=== PATIENT | female | born 2005 | race African-American/Black ===

== ENCOUNTER 2025-04-11 15:34 | Emergency (ER) | payer OTHER, SELFPAY ==
--- OUTSIDE RECORDS SUMMARY | 2023-01-26 10:30 | XMS_ITS | Continuity of Care Document ---
Author Organization [facility] Address [address] [place] [address] [place] [phone] Phone Care Team Providers Care Child Care Director Name Role Phone Bautista Tavares PT Unavailable Unavailable Procedures Procedure Date Therapeutic Activities Neuromuscular Re-Ed Therapeutic Exercise Hot or Cold Pack Therapeutic Activities Neuromuscular Re-Ed Therapeutic Exercise Hot or Cold Pack Ultrasound Therapeutic Activities Neuromuscular Re-Ed Therapeutic Exercise Ultrasound Therapeutic Activities Neuromuscular Re-Ed Therapeutic Exercise Ultrasound Therapeutic Activities Neuromuscular Re-Ed Therapeutic Exercise Ultrasound Therapeutic Activities Neuromuscular Re-Ed Therapeutic Exercise Therapeutic Activities Neuromuscular Re-Ed Therapeutic Exercise Hot or Cold Pack Ultrasound PT Evaluation Moderate Complexity Therapeutic Activities Neuromuscular Re-Ed Therapeutic Exercise Hot or Cold Pack Advance Directives Directive Yes / No Effective Date File Name No Information Encounters Encounter Description Practice Location Reason(s) For Visit Diagnoses Date Provider Providers Copied on Encounter [facility] [address], [place], [place], [id number], tel:[phone] [facility] No Information Anusha Baum. . Referring Provider: Stephen Casiano, [address] [place] [address] [address], [place], [address]. tel:[phone] [address], [place], [place], [id number], [place] tel:[phone] [facility] No Information Anusha Baum. . Referring Provider: Stephen Casiano, [address] [place] [address] [address], [place], [address]. tel:[phone] [address], [place], [place], [id number], [place] tel:[phone] [facility] No Information Anusha Baum. . Referring Provider: Stephen Casiano, [address] [place] [address] [address], [place], [address]. tel:[phone] [address], [place], [place], [id number], [place] tel:[phone] [facility] No Information Anusha Buam. . Referring Provider: Stephen Casiano, [address] [place] [address] [address], [place], [address]. tel:[phone], [place], [place], [id number], [place] tel:[phone] [facility] No Information Anusha Baum. . Referring Provider: Stephen Casiano, [address] [place] [address] [address], [place], [address]. tel:[phone], [place], [place], [id number], [place] tel:[phone] [facility] No Information Anusha Baum. . Referring Provider: Stephen Casiano, [address] [place] [address] [address], [place], [address]. tel:[phone] [facility], [address] [place] [address] [address], [place], [place], [id number], tel:[phone] [facility] No Information Anusha Baum. . Referring Provider: Stephen Casiano, [address] [place] [address] [address], [place], [address]. tel:[phone] [facility], [address] [place] [address] [address], [place], [place], [id number], tel:[phone] [facility] No Information Anusha Baum. . Referring Provider: Stephen Casiano, [address] [place] [address] [address], [place], [address]. tel:[phone] Family History Family Member Type Diagnosis Age At Onset No Information Payers Payer name Insurance type Covered democrat ID Dior kline(s) Reid CI [id number] Social History Type Description Quantity Date Captured Comments Sex Female Smoking Status No Information Chief Complaint And Reason For Visit No Information Reason For Referral Reason For Referral No Information History Of Present Illness Encounter Date Complaint History Of Prese nt Illness No Information Functional Status Date Functional Assessmen t No Information Instructions Date Instruction Additional Infor mation No Information Assessments Type Assessment Date No Information Patient Care Teams Name Effective Dates (start - stop) Status Members No Information
--- OUTSIDE RECORDS SUMMARY | 2023-07-18 05:00 | XMS_ITS | Continuity of Care Document ---
Author Organization [facility] Address [address] [place] [address] Phone Care Team Providers Care Agency Recruiter Name Role Phone BartoloEddie Ravi Unavailable Unavailab le Allergies, Adverse Reactions, Alerts Substance Reaction Status Criticality No Known Allergies Active No Inform ation Medications Medication Instructions Dosage Effective Dates (start - stop) Status Comments rosuvastatin 10 mg tablet take 1 tablet by oral route every day 10 MG - Active Qvar RediHaler 80 mcg/actuation HFA breath activated aerosol inhale 2 puff by inhalation route 2 times every day 160 MCG - Active mometasone 0.1 % topical ointment apply by topical route every day a thin layer to the affected area(s) 0.00 - Active EpiPen 2-Shin 0.3 mg/0.3 mL injection, auto-injector inject 0.3 milliliter by intramuscular route once as needed for anaphylaxis 0.3 MG - Active Dual-pack azithromycin 250 mg tablet 1 dose pk by oral route as directed on dose pack ;take 500 mg today (day 1), then 250 mg for 4 days (days 2-5) - Active ProAir HFA 90 mcg/actuation aerosol inhaler 2 puff by Inhalation route every 6 hours ;administer with spacer prn shortness of breath or wheezing - Active Nasacort 55 mcg nasal spray aerosol 1 spray each nostril AM - Active Zyrtec 10 mg tablet 1 tablet by Oral route every day prn allergy symptoms - Active Zaditor 0.025 % (0.035 %) eye drops 1 drp by Ophthalmic route 2 times per day ;administer at least 8 hours apart prn allergy symptoms - Active Zyrtec 10 mg capsule - Active Auvi-Q 0.3 mg/0.3 mL injection, auto-injector inject 0.3 mL into thigh once as needed for anaphylaxis - No Longer Active 2 pack triamcinolone acetonide 0.05 % topical ointment Apply thin layer to affected area 1-2 times per day as needed - No Longer Active montelukast 5 mg chewable tablet 1 TABLET,CHEWABLE BY ORAL ROUTE EVERY DAY - No Longer Active Lipitor 10 mg tablet take 1 tablet by oral route every day 10 MG - No Longer Active Procedures Procedure Date HEALTH RISK ASSESSMENT, PATIENT-FOCUSED OFFICE [id number] BODY MASS INDEX DOCD SYST BP GE 130 - 139MM HG DIAST BP < 80 MM HG MOUTHPIECE ALBUTEROL 2.5 MG AND IPRATROPIUM BROMIDE .5 MG SPIROMETRY BEFORE & AFTER BRONCHODIALATO R [facility] ALLERGY INJ (MULTIPLE) ALLERGY INJ (MULTIPLE) [facility] ALLERGY INJ (MULTIPLE) [facility] ALLERGY INJ (MULTIPLE) ALLERGY INJ (MULTIPLE) ALLERGY INJ (MULTIPLE) ALLERGY INJ (MULTIPLE) ALLERGY INJ (MULTIPLE) OFFICE [id number]-UCF-MMDALDIL BODY MASS INDEX DOCD SYST BP >= 140 MM HG6 IT DIAST BP 80-89 MM HG ALLERGY INJ (MULTIPLE) HEALTH RISK ASSESSMENT, PATIENT-FOCUSED ALLERGY INJ (MULTIPLE) ALLERGY INJ (MULTIPLE) ALLERGY INJ (MULTIPLE) ALLERGY INJ (MULTIPLE) ALLERGY INJ (MULTIPLE) ALLERGY INJ (MULTIPLE) ALLERGY INJ (MULTIPLE) ALLERGY INJ (MULTIPLE) ALLERGY INJ (MULTIPLE) ALLERGY INJ (MULTIPLE) ALLERGY INJ (MULTIPLE) ALLERGY INJ (MULTIPLE) ALLERGY INJ (MULTIPLE) ALLERGY INJ (MULTIPLE) ALLERGY INJ (MULTIPLE) ALLERGY INJ (MULTIPLE) ALLERGY INJ (MULTIPLE) ALLERGY INJ (MULTIPLE) ALLERGY INJ (MULTIPLE) ALLERGY INJ (MULTIPLE) ALLERGY INJ (MULTIPLE) ALLERGY INJ (MULTIPLE) ALLERGY INJ (MULTIPLE) ALLERGY INJ (MULTIPLE) ALLERGY INJ (MULTIPLE) RAPID DESENSITIZATION, EACH HOUR 2020 OFFICE [id number] BODY MASS INDEX DOCD ALLERGY INJ (MULTIPLE) RAPID DESENSITIZATION, EACH HOUR 2020 OFFICE [id number]-IEC-AHUXCUNV BODY MASS INDEX DOCD ALLERGY INJ (MULTIPLE) OFFICE [id number] BODY MASS INDEX DOCD RAPID DESENSITIZATION, EACH HOUR 2020 OFFICE JPUXW-HOO-VGAVOREV BODY MASS INDEX DOCD RAPID DESENSITIZATION, EACH HOUR 2020 RAPID DESENSITIZATION, EACH HOUR 2020 OFFICE UAOKM-[id number]-XSWSCIXO OFFICE PIHWP-ZQT-[id number] RAPID DESENSITIZATION, EACH HOUR 2020 OFFICE QQHUI-FHH-[id number] BODY MASS INDEX DOCD RAPID DESENSITIZATION, EACH HOUR 2020 OFFICE [id number]-PJK-[id number] BODY MASS INDEX DOCD RAPID DESENSITIZATION, EACH HOUR 2020 [facility] ALLERGY SKIN TESTS OFFICE [id number] BODY MASS INDEX DOCD OFFICE [id number] Advance Directives Directive Yes / No Effective Date File Name No Information Encounters Encounter Description Practice Location Reason(s) For Visit Diagnoses Date Provider Providers Copied on Encounter OFFICE [id number]ULP[facility]PW [facility], [address], [place], [place], [address] , tel: [phone] [facility] Follow Up of Allergy symptoms (chief complaint) Follow Up of Asthma (chief complaint) Follow Up of Eczema (chief complaint) Follow Up of Reaction, food (chief complaint) Food allergyAllergic rhinitis due to pollen, unspecified seasonalityAllergic rhinitis due to animal hair and danderAllergic rhinitis due to dust miteMild persistent asthma without complicationFlexura l eczema 3 Kaitlynn Morgan. [address] [place] [address], [address], [place]. tel:[phone] Referring Provider: Eddie Calderón, [address] [place] [address], [address]. tel:[phone] [facility], [address], [place], [place], [address] , [place] tel:[phone] [facility] No Information 3 Isaias Henley. [address] [place] [address], [id number], [place]. tel:[phone] [facility], [address], [place], [address] , tel: [phone] [facility] No Information 2 Isaias Rabya. [address] [place] [address], [id number], [place]. tel:[phone] Referring Provider: Lenora Snyder, [address], [place], [address]. tel:[phone] [facility], [address], [place], [place], [address] , [place] tel: [phone] [facility] No Information 2 Isaias Rabya. [address] [place] [address], [id number], [place]. tel:[phone] Referring Provider: Lenora Snyder, [address], [place], [address]. tel:[phone] [facility], [address], [place], [place], [address] , [place] tel: [phone] [facility] Allergic rhinitis due to pollen 2 Isaias Rabya. [address] [place] [address], [id number], [place]. tel:[phone] Referring Provider: Lenora Snyder, [address], [place], [address]. tel:[phone] [facility], [address], [place], [place], [address] , [place] tel: [phone] [facility] Allergic rhinitis due to pollen 2 Isaias Rabya. [address] [place] [address], [id number], [place]. tel:[phone] Referring Provider: Lenora Snyder [address], [place], [address]. tel:[phone] [facility], [address], [address] , [place] tel: [phone] [facility] No Information 2 Isaiasissac Henley. [address] [place], [address], [place]. tel:[phone] Referring Provider: Lenora Snyder, [address], [place], [address]. tel:[phone] [facility], [address], [place], [place], [address] , [place] tel: [phone] [facility] Allergic rhinitis due to pollen 2 Isaias Rabya. [address] [place] [place], [place], [address], [place]. tel:[phone] Referring Provider: Lenora Snyder, [address], [place], [address]. tel:[phone] [facility], [address], [place], [place], [address] , [place] tel: [phone] [facility] No Information 2 Isaias Rabrubén. [address] [place] [place], [place], [id number], [place]. tel:[phone] Referring Provider: Lenora Snyder, [address], [place], [address]. tel:[phone] [facility], [address], [place], [place], [address] , [place] tel: [phone] [facility] No Information 2 Isaias Rabrubén. [address] [place], [place], [address], [place]. tel:[phone] Referring Provider: Lenora Snyder, [address], [place], [address]. tel:[phone] [facility], [address], [place], [place], [address] , [place] tel: [phone] [facility] Allergic rhinitis due to pollen 2 Isaias Rabya. [address] [place], [place], [address], [place]. tel:[phone] Referring Provider: Lenora Snyder [address], [place], [address]. tel:[phone] [facility], [address], [place], [place], [address] , [place] tel: [phone] [facility] Allergic rhinitis due to pollen 2 Isaias Rabya. [address] [place], [place], [address], [place]. tel:[phone] Referring Provider: Lenora Snyder [address], [place], [address]. tel:[phone] [facility], [address], [place], [place], [address] , [place] tel: [phone] [facility] Allergic rhinitis due to pollen 2 Isaias Rabya. [address] [place], [place], [address], [place]. tel:[phone] Referring Provider: Lenora Snyder [address] [facility], [place], [address]. tel:[phone] [facility], [address], [place], [place], [address] , [place] tel: [phone] [facility] Allergic rhinitis due to pollen 2 Isaias Rabya. [address] [place], [place], [address], [place]. tel:[phone] Referring Provider: Lenora Snyder [address], [place], [address]. tel:[phone] [facility], [address], [place], [place], [address] , [place] tel: [phone] [facility] Allergic rhinitis due to pollen 2 Isaias Rabrubén. [address] [place], [place], [address], [place]. tel:[phone] Referring Provider: Lenora Snyder, [address], [place], [address]. tel:[phone] OFFICE [id number]-WH [facility], [address], [place], [place], [address] , [place] tel: [phone] [facility] allergy f/u (chief complaint) asthma f/u (chief complaint) eczema f/u (chief complaint) food allergy f/u (chief complaint) Allergic rhinitis due to pollenAllergic rhinitis due to animal danderAllergic rhinitis due to Rwandan house dust miteExercise induced bronchospasmMild intermittent asthma without complicationAtopic dermatitisFood allergy 2 Cathy Garcia. [address] [place] [place], [place], [address], [place]. tel:[phone] Referring Provider: Lenora Snyder, [address] [facility] [address], [place], [address]. tel:[phone] [facility], [address], [place], [place], [address] , [place] tel:[phone] [facility] Allergic rhinitis due to pollen 2 Isaias Rabya. [address] [place] [place], [place], [address], [place]. tel:[phone] Referring Provider: Lenora Snyder [address], [place], [address]. tel:[phone] [facility], [address], [place], [place], [address] , [place] tel:[phone] [facility] Allergic rhinitis due to pollen 2 Isaias Rabya. [address] [place], [place], [address], [place]. tel:[phone] Referring Provider: Lenora Snyder [address], [place], [address]. tel:[phone] [facility], [address], [place], [place], [address] , tel: [phone] [facility] Allergic rhinitis due to pollen 1 Isaias Rabya. [address] [place] [address], [id number], [place]. tel:[phone] Referring Provider: Lenora Snyder [address], [place], [address]. tel:[phone] [facility], [address], [place], [place], [address] , [place] tel: [phone] [facility] Allergic rhinitis due to pollen 1 Isaias Rabya. [address] [place] [address], [id number], [place]. tel:[phone] Referring Provider: Lenora Snyder [address], [place], [address]. tel:[phone] [facility], [address], [place], [place], [address] , [place] tel: [phone] [facility] Allergic rhinitis due to pollen 1 Isaias Rabya. [address] [place] [address], [id number], [place]. tel:[phone] Referring Provider: Lenora Snyder [address], [place], [address]. tel:[phone] [facility], [address], [place], [place], [address] , tel: [phone] [facility] Allergic rhinitis due to pollen 1 Isaias Rabya. [address] [place], [place], [address], [place]. tel:[phone] Referring Provider: Lenora Snyder [address], [place], [address]. tel:[phone] [facility], [address], [place], [place], [address] , [place] tel: [phone] [facility] Allergic rhinitis due to pollen 7 1 Isaias Rabya. [address] [place], [place], [address], [place]. tel:[phone] Referring Provider: Lenora Snyder [address], [place], [address]. tel:[phone] [facility], [address], [place], [place], [address] , [place] tel: [phone] [facility] Allergic rhinitis due to pollen - 1 Isaias Rabya. [address] [place] [address], [id number], [place]. tel:[phone] Referring Provider: Lenora Snyder [address], [place], [address]. tel:[phone] [facility], [address], [place], [place], [address] , [place] tel: [phone] [facility] Allergic rhinitis due to pollen 1 Isaias Rabya. [address] [place] [address], [id number], [place]. tel:[phone] Referring Provider: Lenora Snyder [address], [place], [address]. tel:[phone] [facility], [address], [place], [place], [address] , [place] tel: [phone] [facility] Allergic rhinitis due to pollen 0 6- 1 Isaias Rabya. [address] [place], [place], [address], [place]. tel:[phone] Referring Provider: Lenora Lillian, [address], [place], [address]. tel:[phone] [facility], [address], [place], [place], [address] , [place] tel: [phone] [facility] Allergic rhinitis due to pollen Sep-2 - 1 Isaias Rabya. [address] [place], [place], [address], [place]. tel:[phone] Referring Provider: Lenora Snyder, [address], [place], [address]. tel:[phone] [facility], [address], [place], [place], [address] , [place] tel: [phone] [facility] Allergic rhinitis due to pollen Sep-2 1 Isaias Rabya. [address] [place] [address], [id number], [place]. tel:[phone] Referring Provider: Lenora Snyder [address], [place], [address]. tel:[phone] [facility], [address], [place], [place], [address] , [place] tel: [phone] [facility] Allergic rhinitis due to pollen Sep-1 1 Isaias Rabya. [address] [place] [address], [id number], [place]. tel:[phone] Referring Provider: Lenora Snyder [address], [place], [address]. tel:[phone] [facility], [address], [place], [place], [address] , [place] tel: [phone] [facility] Allergic rhinitis due to pollen Sep-0 - 1 Isaias Rabya. [address] [place], [place], [address], [place]. tel:[phone] Referring Provider: Lenora Snyder [address], [place], [address]. tel:[phone] [facility], [address], [place], [place], [address] , [place] tel: [phone] [facility] Allergic rhinitis due to pollen 1 Isaias Rabya. [address] [place] [address], [id number], [place]. tel:[phone] Referring Provider: Lenora Snyder [address], [place], [address]. tel:[phone] [facility], [address], [place], [place], [address] , [place] tel: [phone] [facility] Allergic rhinitis due to pollen 1 Isaias Rabya. [address] [place] [address], [id number], [place]. tel:[phone] Referring Provider: Lenora Snyder [address], [place], [address]. tel:[phone] [facility], [address], [place], [place], [address] , [place] tel: [phone] [facility] Allergic rhinitis due to pollen 1 Isaias Rabya. [address] [place] [address], [id number], [place]. tel:[phone] Referring Provider: Maria Elena R[address], [place], [address]. tel:[phone] [facility], [address], [place], [place], [address] , [place] tel: [phone] [facility] Allergic rhinitis due to pollen 1 Isaias Rabya. [address] [place] [address], [id number], [place]. tel:[phone] Referring Provider: Maria Elena Rucker [address], [place], [address]. tel:[phone] [employer], [address], [place], [place], [address] , [place] tel: [phone] [facility] Allergic rhinitis due to pollen 1 Isaias Rabya. [address] [place] [address], [id number], [place]. tel:[phone] Referring Provider: Lenora Snyder [address], [place], [address]. tel:[phone] [employer], [address], [place], [place], [address] , [place] tel: [phone] [facility] Allergic rhinitis due to pollen 1 Isaias Rabya. [address] [place] [address], [id number], [place]. tel:[phone] Referring Provider: Maria Elena Rucker [address], [place], [address]. tel:[phone] [facility], [address], [place], [place], [address] , [place] tel: [phone] [facility] Allergic rhinitis due to pollen 1 Isaias Rabya. [address] [place] [address], [id number], [place]. tel:[phone] Referring Provider: Maria Elena Rucker [address], [place], [address]. tel:[phone] [facility], [address], [place], [place], [address] , [place] tel: [phone] [facility] Allergic rhinitis due to pollen 1 Isaias Rabya. [address] [place] [address], [id number], [place]. tel:[phone] Referring Provider: Maria Elena Rucker [address], [place], [address]. tel:[phone] [facility], [address], [place], [place], [address] , [place] tel: [phone] [facility] Allergic rhinitis due to pollen Jan- 1 Isaias Rabya. [address] [place], [place], [address], [place]. tel:[phone] Referring Provider: Lenora Snyder, [address] [facility] [address], [place], [address]. tel:[phone] [facility], [address], [place], [place], [address] , [place] tel: [phone] [facility] Allergic rhinitis due to pollen 1 Isaias Rabya. [address] [place] [address], [id number], [place]. tel:[phone] Referring Provider: Lenora Snyder, [address] [facility] [address], [place], [address]. tel:[phone] [facility], [address], [place], [place], [address] , [place] tel: [phone] [facility] Allergic rhinitis due to pollen 1 Isaias Rabya. [address] [place] [address], [id number], [place]. tel:[phone] Referring Provider: Lenora Snyder [address] [facility] [address], [place], [address]. tel:[phone] OFFICE [id number]-ZAD-XS PANDED [facility], [address], [place], [place], [address] , [place] tel: [phone] [facility] Allergy f/u (chief complaint) Follow Up of Asthma (chief complaint) Follow Up of Eczema (chief complaint) Allergic rhinitis due to pollenAllergic rhinitis due to Rwandan house dust miteAllergic rhinitis due to animal danderMild intermittent asthma without complicationFlexura l eczemaDesensitizati on to allergensAcute otitis media, unspecified otitis media type Mynor-1 9-202 1 [facility]. [address] [place] [address], [address], [place]. tel:[phone] Referring Provider: Siomara Rucker[address] [facility] [address], [place], [address]. tel:[phone] [facility], [address], [place], [place], [address] , [place] tel:[phone] [facility] Allergic rhinitis due to pollen 1 Isaias Rabya. [address] [place] [address], [id number], [place]. tel:[phone] Referring Provider: Lenora Snyder, [address] [facility] [address], [place], [address]. tel:[phone] OFFICE [id number] PANDED [facility], [address], [place], [place], [address] , [place] tel: [phone] [facility] Allergy f/u (chief complaint) Follow Up of Asthma (chief complaint) Follow Up of Eczema (chief complaint) Allergic rhinitis due to pollenAllergic rhinitis due to animal danderAllergic rhinitis due to Rwandan house dust miteMild intermittent asthma without complicationFlexura l eczemaDesensitizati on to allergens 1 [facility]. [address] [place] [address], [address], [place]. tel:[phone] Referring Provider: Lenora Snyder [address] [facility] [address], [place], [address]. tel:[phone] [facility], [address], [place], [place], [address] , [place] tel:[phone] [facility] Allergic rhinitis due to pollen 1 Isaias Rabya. [address] [place] [address], [id number], [place]. tel:[phone] Referring Provider: Lenora Snyder [address] [facility] [address], [place], [address]. tel:[phone] OFFICE PJNVN-GWF-AU [facility], [address], [place], [place], [address] , tel:[phone] [facility] allergy f/u (chief complaint) asthma (chief complaint) Eczema (chief complaint) Allergic rhinitis due to pollenAllergic rhinitis due to animal danderAllergic rhinitis due to Rwandan house dust miteDesensitization to allergensMild intermittent asthma without complicationFlexura l eczema 1 [facility]. [address] [place] [address], [id number], [place]. tel:[phone] Referring Provider: Lenora Snyder, [address] [place] [address] [address], [place], [address]. tel:[phone] OFFICE JCFVH[facility]WLY-QG [facility], [address], [place], [place], [address] , [place] tel: [phone] [facility] allergy f/u (chief complaint) asthma (chief complaint) Eczema (chief complaint) Allergic rhinitis due to pollenAllergic rhinitis due to animal danderAllergic rhinitis due to Rwandan house dust miteDesensitization to allergensMild intermittent asthma without complicationFlexura l eczemaOther chronic allergic conjunctivitis of both eyes 1 [facility]. [address] [place] [address], [id number], [place]. tel:[phone] Referring Provider: Lenora Snyder, [address] [facility] [address], [place], [address]. tel:[phone] OFFICE [id number]-ALX-XK [facility], [address], [place], [place], [address] , [place] tel:[phone] [facility] Allergy f/u (chief complaint) Follow Up of Asthma (chief complaint) Follow Up of Reaction, food (chief complaint) Follow Up of Eczema (chief complaint) Allergic rhinitis due to pollenAllergic rhinitis due to animal danderAllergic rhinitis due to [place]an house dust miteMild intermittent asthma without complicationExercis e induced bronchospasmFood allergyFlexural eczemaDesensitizati on to allergens 1 Kaitlynn Morgan. [address] [place], [address], [place]. tel:[phone] Referring Provider: Lenora Snyder, [address] [facility] [address], [place], [address]. tel:[phone] OFFICE JXTRX-QJD-KI [facility], [address], [place], [place], [address] , [place] tel:[phone] [facility] allergy f/u (chief complaint) asthma (chief complaint) Reaction, food (chief complaint) h/o hives after vaccine (chief complaint) eczema (chief complaint) Allergic rhinitis due to pollenAllergic rhinitis due to animal danderAllergic rhinitis due to Rwandan house dust miteDesensitization to allergensMild intermittent asthma without complicationExercis e induced bronchospasmFood allergyAdverse effect of vaccine, subsequent encounter 1 Cathy Garcia. [address] [place] [address], [id number], [place]. tel:[phone] Referring Provider: Lenora Snyder, [address] [facility] [address], [place], [address]. tel:[phone] OFFICE ACKJP-JDA-AR [facility], [address], [place], [place], [address] , [place] tel:[phone] [facility] allergy f/u (chief complaint) asthma (chief complaint) food allergy (chief complaint) eczema (chief complaint) Allergic rhinitis due to pollenAllergic rhinitis due to animal danderAllergic rhinitis due to Rwandan house dust miteDesensitization to allergensMild intermittent asthma without complicationFood allergyOther chronic allergic conjunctivitis of both eyes 1 Cathy Garcia. [address] [place] [address], [id number], [place]. tel:[phone] Referring Provider: Lenora Snyder, [address] [facility] [address] [place] [address], [address]. tel:[phone] OFFICE BRPOM-CSS-WF [facility], [address], [place], [place], [address] , tel: [phone] [facility] allergy f/u (chief complaint) asthma (chief complaint) Tree nut allergy (chief complaint) eczema (chief complaint) Vaccine Reaction (chief complaint) Allergic rhinitis due to pollenAllergic rhinitis due to animal danderAllergic rhinitis due to Rwandan house dust miteDesensitization to allergensFood allergyMild intermittent asthma without complicationAllergi c conjunctivitis, bilateralAdverse effect of vaccine, initial encounterExercise induced bronchospasm 1 Cathy Garcia. [address] [place] [address], [id number], [place]. tel:[phone] Referring Provider: Lenora Snyder [address] [place] [address], [address]. tel:[phone] [employer], [address], [place], [place], [id number] , [place] tel: [phone] [facility] No Information 1 Isaias Henley. [address] [place] [address], [id number], [place]. tel:[phone] Referring Provider: Lenora Snyder [address], [address]. tel:[phone] [facility], [address], [place], [place], [address] , [place] tel: [phone] [facility] No Information 1 Isaias Henley. [address] [place] [address], [id number], [place]. tel:[phone] Referring Provider: Lenora Snyder [address] [facility] [address], [place], [address]. tel:[phone] [facility], [address], [place], [id number] , [place] tel: [phone] [facility] No Information 1 Isaias Henley. [address] [place], [place], [id number], [place]. tel:[phone] Referring Provider: Lenora Snyder, [address] [facility] [address], [place], [address]. tel:[phone] [facility], [address], [place], [place], [id number] , [place] tel: [phone] [facility] No Information 1 Isaias Henley. [address] [place], [place], [id number], [place]. tel:[phone] Referring Provider: Lenora Snyder, [address] [facility] [address], [place], [address]. tel:[phone] [facility], [address], [place], [place], [id number] , [place] tel: [phone] [facility] No Information 1 Isaias Henley. [address] [place], [place], [id number], [place]. tel:[phone] Referring Provider: Lenora Snyder, [address] [facility] [address], [place], [address]. tel:[phone] OFFICE [id number]-ET [facility], [address], [place], [place], [id number] , [place] tel: [phone] [facility] Allergy testing (chief complaint) Follow Up of Asthma (chief complaint) Follow Up of Reaction, food (chief complaint) Follow Up of Eczema (chief complaint) Food allergyAllergic rhinitis due to pollen, unspecified seasonalityAcute allergic rhinitis due to animal hair and danderAllergic rhinitis due to Rwandan house dust miteMild intermittent asthma without complicationExercis e induced bronchospasmFlexura l eczema 1 Kaitlynn Morgan. [address] [place] [address], [address], [place]. tel:[phone] Referring Provider: Lenora Snyder, [address] [facility] [address], [place], [address]. tel:[phone] OFFICE [id number]-HFU-PS [facility], [address], [place], [place], [id number] , [place] tel: [phone] [facility] Follow Up of Allergy symptoms (chief complaint) Follow Up of Eczema (chief complaint) Follow Up of Hives (chief complaint) Follow Up of Asthma (chief complaint) Follow Up of Reaction, food (chief complaint) Allergic rhinitis, seasonalMild intermittent asthma without complicationExercis e induced bronchospasmFlexura l eczemaHivesFood allergyAllergic conjunctivitis, bilateral Sep- 0- 1 Philky Conklinncaleyda. [address] [place], [address], [place]. tel:[phone] Referring Provider: Lenora Snyder, [address] [facility] [address], [place], [address]. tel:[phone] [facility], [address], [place], [place], [id number] , [place] tel: [phone] [facility] No Information 0 8 Alex Valladares. [address] [place], [place], [id number]. tel:[phone] [facility], [address], [place], [place], [address] , [place] tel: [phone] [facility] Allergic rhinitis due to pollenAllergic conjunctivitis, bilateralMild intermittent asthma without complicationExercis e induced bronchospasmFood allergyFlexural eczemaPenicillin allergy 8 Alex Valladares. [address] [place], [place], [id number]. tel:[phone] Referring Provider: Lenora Sndyer, [address] [facility] [address], [place], [address]. tel:[phone] [facility], [address], [place], [place], [address] , [place] tel: [phone] [facility] Allergy with anaphylaxis due to tree nuts or seeds, initial encounterAllergy with anaphylaxis due to peanuts, initial encounterAllergic rhinitis, seasonalOther chronic allergic conjunctivitisExtri nsic asthma without status asthmaticus, mild intermittent, uncomplicatedFlexur al eczemaPenicillin allergy Sep- 6 Isaias Henley. [address] [place], [place], [id number], [place]. tel:[phone] Referring Provider: Kale Esparza, [address] [place], [address] . tel:[phone] Family History Family Member Type Diagnosis Age At Onset Father Problem (finding) Allergies, environmenta l Father Problem (finding) asthma Payers Payer name Insurance type Covered democrat ID Authoriza tion(s) [employer] PPO SELF FUNDED PLANS CI [id number] Social History Type Description Quantity Date Captured Comments Alcohol Use Details Unknown Caffeine Use Details Unknown Tobacco Use Status Never smoked tobacco 2022 Smoking Status Never smoker Sex Female Vital Signs Date / Time: Height Weight BMI Pulse Rate Blood Pressure Temperature Respiratory Rate Body Surface Area Head Circumference Head Circ. Percentile Wt./Ck. Percentile BMI percentile Pulse Ox Inhaled Ox 10:18 AM 67.72 in 71.849 kg (158.40 lbs) 24.2 9 kg/m eter (2) 63 /min 131/73 mm[Hg] 98.40 F 74 97 % Chief Complaint And Reason For Visit From encounter dated '07/18/2023 10:00'. Follow Up of Allergy symptoms (chief complaint) Follow Up of Asthma (chief complaint) Follow Up of Eczema (chief complaint) Follow Up of Reaction, food (chief complaint) Reason For Referral Reason For Referral No Information Plan Of Treatment Date Type Action Status Future Order: Lab Order Stamping Ground N ut (f18) IgE W/Reflex Component ([id number]), Sent on: Sent Future Order: Lab Order Immunogl obulin E, Total ([id number]), Sent on: Sent Future Order: Lab Order Cashew N ut F202 ([id number]), Sent on: Sent Future Order: Lab Order Pecan Nu t F201 ([id number]), Sent on: Sent Future Order: Lab Order Sharon ( f256) IgE W/Reflex Component Panel ([id number]), Sent on: Sent Future Order: Lab Order Cashew N ut (f202) IgE W/Reflex Component ([id number]), Sent on: Sent Future Order: Lab Order Hazelnut (f17) IgE W/Reflex Component Panel ([id number]), Sent on: Sent Future Order: Lab Order Pistachi o Nut Ige F203 ([id number]), Sent on: Sent Future Order: Lab Order Peanut F 013 ([id number]), Sent on: Sent Future Order: Lab Order Macadami a Nut F345 ([id number]), Sent on: Sent Future Order: Lab Order Forsyth F 020 ([id number]), Sent on: Sent Future Order: Lab Order Peanut, Total with Reflex to Peanut Component Pane ([id number]), Sent on: Sent Future Order: Lab Order Forsyth F 020 ([id number]), Ordered on: Ordered Future Order: Lab Order Cashew N ut F202 ([id number]), Ordered on: Ordered Future Order: Lab Order Sharon F 256 ([id number]), Ordered on: Ordered Future Order: Lab Order Peanut, Total with Reflex to Peanut Component Pane ([id number]), Ordered on: Ordered Future Order: Lab Order Hazelnut /Filbert F017 ([id number]), Ordered on: Ordered Future Order: Lab Order Peanut F 013 ([id number]), Ordered on: Ordered Future Order: Lab Order Macadami a Nut F345 ([id number]), Ordered on: Ordered Future Order: Lab Order Pistachi o Nut Ige F203 ([id number]), Ordered on: Ordered Future Order: Lab Order Peanut, Total with Reflex to Peanut Component Pane ([id number]), Ordered on: Ordered Future Order: Lab Order Sharon F 256 ([id number]), Ordered on: Ordered Future Order: Lab Order Pistachi o Nut Ige F203 ([id number]), Ordered on: Ordered Future Order: Lab Order Hazelnut /Filbert F017 ([id number]), Ordered on: Ordered Future Order: Lab Order Cashew N ut F202 ([id number]), Ordered on: Ordered Future Order: Lab Order Macadami a Nut F345 ([id number]), Ordered on: Ordered Future Order: Lab Order Forsyth F 020 ([id number]), Ordered on: Ordered Future Order: Lab Order Peanut F 013 ([id number]), Ordered on: Ordered Future Order: Lab Order F020 Sravanthi ond ([id number]), Sent on: Sent Future Order: Lab Order F202 Chema hew Nut ([id number]), Sent on: Sent Future Order: Lab Order F013 Pea nut ([id number]), Sent on: Sent Future Order: Lab Order Peanut C omponent Panel ([id number]), Sent on: Sent Future Order: Lab Order F256 Wal nut, Food ([id number]), Sent on: Sent History Of Present Illness Encounter Date Complaint History Of Prese nt Illness Follow Up of Allergy symptoms Follow Up of Asthma Follow Up of Eczema Follow Up of Reaction, food Comments: This i s a 17 y/o female who presents to the clinic for follow-up of allergic rhinitis, asthma, eczema, and history of peanut/tree nut allergy. Patient was last seen in the office 08/19/2021 with AD. Patient is allergic to trees, grasses, weeds, molds, and animal dander, including cat, dog, dust mite, cockroach, feather mix, guinea pig, and sweet gum. Patient received allergen immunotherapy from October 2020-October 2021. Patient complains of increased nasal drainage. She denies any itchy eyes, congestion, or sneezing. She has been taking Ofelia, Pepcid, and Singulair daily. She uses Flonase Sensimist daily as needed for worsening symptoms. Comments: Huongjuliette cat states that she has been having increased amounts of shortness of breath, coughing, and chest tightness. She states that it is slightly worse at night. She uses albuterol before soccer games/practices, but she has had to use albuterol at least once per week for nighttime symptoms. She takes Singulair 10 mg PO daily. Patient has not had any recent exacerbations. Comments: Saulo shelton states that she has been having increased flares of eczema on her neck and left inner thigh. She states that she has been using CeraVe for moisturization. She feels that the triamcinolone ointment is not helping with symptoms and would like something stronger. She denies any cracking or bleeding. She states that she typically will have breakouts on her inner elbows and under her knees but those are not bothering her currently. Comments: Saulo shelton continues to avoid peanuts (vomiting, rash) and tree nuts (flushing, vomiting, and hives); these required epinephrine in 2016. She states that about 1-2 weeks ago she had a [place] granola bar and did not get to read the label carefully; she developed throat itching after having one bite (contained almond). She took 2 Benadryl and symptoms resolved within 20-30 minutes. She has since been actively avoiding. Last immunoCAPS drawn 11/05/2020 showed peanut 8.81 KU/L, Cashew 1.59 KU/L, Forsyth 0.79 KU/L, Hazelnut 12.7 KU/L, Macadamia Nut 0.17 KU/L, Pistachio 2.20 KU/L and Sharon <0.10 KU/L. allergy f/u asthma f/u allergy f/u (comments) Rosita brown bernardo traditional allergy immunotherapy for allergies to trees, grasses, weeds, molds, and animal dander, including cat, dog, dust mites, cockroach, feather mix, guinea pig, and sweet gum. Reports mild nasal congestion (states she has had then since recovering from COVID at the first week of August); otherwise denies rhinorrhea, sneezing or PND. She is taking Ofelia, Pepcid, Singulair and using Sensimist PRN. food allergy f/u (comments) She continues avoiding peanuts and tree nuts. Denies any accidental exposures. Last ImmunoCAPS 11/05/2020: peanut 8.81 KU/L, Cashew 1.59 KU/L, Forsyth 0.79 KU/L, Hazelnut 12.7 KU/L, Macadamia Nut 0.17 KU/L, Pistachio 2.20 KU/L and Sharon <0.10 KU/L. She has a current Auvi Q and up to date food allergy action plan. She is not interested in oral food challenge at this time. eczema f/u food allergy f/u asthma f/u (comments) Reports in termittent shortness of breath, specifically with soccer. She has not been pre-treating with albuterol. Denies cough or wheezing. eczema f/u (comments) She had a recent flare up of eczema on her hands and inner thighs. Symptoms resolved with triamcinolone. She is moisturizing with Cerave. Allergy f/u (comments) This is a 15 y/o female who presents to the clinic for follow-up and to continue cluster (2 rounds) allergen immunotherapy. Patient is allergic to trees, grasses, weeds, molds, and animal dander, including cat, dog, dust mite, cockroach, feather mix, guinea pig, and sweet gum. Patient tolerated injections last week with no reaction. Patient continues to complain of ear pressure, yellow drainage, coughing, and PND. Patient denies any itchy eyes and congestion. She is currently taking Ofelia, Pepcid, Singulair, and Flonase Sensimist daily. Follow Up of Eczema (comments) Ernestina castillo denies any recent flares or breakouts. Patient continues to use CeraVe cream to moisturize with triamcinolone cream as needed. Patient states that she takes a shower immediately after playing soccer which helps with eczema control. Follow Up of Eczema Allergy f/u Follow Up of Asthma Follow Up of Asthma (comments) Ernestina castillo denies any chest tightness, wheezing, or SOB. Patient continues to take Singulair daily at bedtime. She has not had to use albuterol recently. Patient denies any recent exacerbations. Follow Up of Asthma (comments) Ernestina castillo has been well-controlled with her asthma. Patient has been taking Singulair nightly. Patient has not had to use her albuterol recently. She denies any coughing, wheezing, chest tightness, or SOB. Patient denies any recent exacerbations. Follow Up of Eczema (comments) Ernestnia castillo does have [id number]-sw-hsrawkhs eczema on her bilateral hands and arms. Patient has been using CeraVe cream regularly. This happened after playing all week last week for soccer. Patient has been using triamcinolone cream which is only slightly improving symptoms. Follow Up of Eczema Allergy f/u Allergy f/u (comments) This is a 15 y/o female who presents to the clinic for follow-up and to continue cluster (3 rounds) allergen immunotherapy. Patient is allergic to trees, grasses, weeds, molds, and animal dander, including cat, dog, dust mite, cockroach, feather mix, guinea pig, and sweet gum. Patient tolerated injections last week with no reaction. Patient continues on 1:10 concentration. Patient does complain of sinus drainage and ear pressure for the past 3-4 days. She denies any fever. She states that she has a very mild, intermittent headache as well. she has a yellowish productive cough with nausea. She has been taking her Ofelia, Pepcid, Singulair, and Flonase Sensimist daily. Follow Up of Asthma asthma allergy f/u (comments) Rosita reed sents today for allergic rhinitis follow up and to continue cluster allergy immunotherapy. She is allergic to trees, grasses, weeds, molds, and animal dander, including cat, dog, dust mites, cockroach, feather mix, guinea pig, and sweet gum. Denies local reaction after her injections last week. She reports she has been feeling well this past week; denies congestion, drainage, sneezing, or itchy eyes. She is taking Ofelia, Pepcid, Singulair and Flonase Sensimist daily and uses Zaditor eye drops as needed for itchy eyes. allergy f/u asthma (comments) Denies cough, wheezing, sneezing, or SOB. Currently on Singulair 10 mg PO daily at bedtime. No recent albuterol use. Eczema (comments) Denies any cur rent eczema symptoms. She has been moisturizing her skin daily with Cerave. Eczema Eczema Eczema (comments) She reports th at the eczema on her hands has started to improve with routine moisturizing with CeraVe. asthma (comments) Denies cough, wheezing, sneezing, or SOB. She is taking Singulair 10 mg PO daily at bedtime. She has not required albuterol in the past week. asthma allergy f/u allergy f/u (comments) Rosita reed sents today for allergic rhinitis follow up and to continue cluster allergy immunotherapy. She is allergic to trees, grasses, weeds, molds, and animal dander, including cat, dog, dust mites, cockroach, feather mix, guinea pig, and sweet gum. Denies local reaction after her injections last week. She complains of congestion and drainage. She is taking Ofelia, Pepcid, Singulair and Flonase Sensimist daily and uses Zaditor eye drops as needed for itchy eyes. Follow Up of Eczema Follow Up of Reaction, food Allergy f/u (comments) This is a 15 y/o female who presents to the clinic for follow-up and to continue cluster (3 rounds) allergen immunotherapy. Patient is allergic to trees, grasses, weeds, molds, and animal dander, including cat, dog, dust mite, cockroach, feather mix, guinea pig, and sweet gum. Patient tolerated injections last week with no local or systemic reaction. Patient continues to complain of congestion, drainage, PND, and itchy/watery eyes. She is taking Ofelia, Pepcid, Singulair, Flonase Sensimist ,and Zaditor eye drops daily. Follow Up of Asthma (comments) Ernestina castillo has been well-controlled with her asthma. She has not had to use her albuterol this week. She continues taking Singulair daily at bedtime. Patient denies any coughing, wheezing, chest tightness, or SOB. Patient has not had any recent exacerbations. Follow Up of Reactio n, food (comments) Patient continues avoiding tree nuts and peanuts, Patient denies any recent or accidental exposures. Follow Up of Eczema (comments) Ernestina castillo has not had any recent flares or breakouts. She is continuing to moisturize with CeraVe. She has not had to use triamcinolone recently. Follow Up of Asthma Allergy f/u allergy f/u (comments) Rosita pre sents today for allergic rhinitis follow up and to continue cluster allergy immunotherapy. She is allergic to trees, grasses, weeds, molds, and animal dander, including cat, dog, dust mites, cockroach, feather mix, guinea pig, and sweet gum. She has a mild local reaction last week after her injections. She complains of congestion and post nasal drainage. She is taking Ofelia, Pepcid, Singulair and Flonase Sensimist daily and uses Zaditor eye drops as needed. asthma (comments) Patient denies any current coughing, wheezing, sneezing, or SOB. She is taking Singulair 10 mg PO daily at bedtime. She used albuterol once this past week. Reaction, food (comments) Unchan ged from last visit. She continues avoiding peanuts and tree nuts. Denies any accidental exposures. h/o hives after vacc ine (comments) She has a history of developing hives 2 hours after her first Pfizer COVID vaccine. Recommendation was to receive the 2nd dose of Pfizer, but to premedicate with Benadryl and Pepcid. She received her second dose this past week and was closely monitored for 1.5 hours at the vaccine clinic. She did not have any adverse reaction. eczema (comments) She has occasi onal flare ups on the back of her hands. She is moisturizing with Cerave and has been prescribed Triamcinolone. allergy f/u Reaction, food h/o hives after vaccine eczema asthma eczema (comments) Continues to e xperience itchy, red patches on her hands. She has not yet started the triamcinolone that was prescribed at her visit last week. allergy f/u (comments) Rosita pre sents today for allergic rhinitis follow up and to continue cluster allergy immunotherapy. She is allergic to trees, grasses, weeds, molds, and animal dander, including cat, dog, dust mites, cockroach, feather mix, guinea pig, and sweet gum. She complains of post nasal drainage and some congestion; denies rhinorrhea or itchy eyes. She is taking Ofelia, Pepcid, Singulair and Flonase Sensimist daily and uses Zaditor eye drops as needed. food allergy (comments) She cont inues avoiding peanuts and tree nuts. Denies any accidental exposures. allergy f/u food allergy eczema asthma (comments) Denies any cou gh, wheezing, sneezing, or SOB. She is taking Singulair 10 mg PO daily at bedtime. asthma asthma allergy f/u (comments) Rosita pre sents today for allergic rhinitis follow up and to start cluster allergy immunotherapy. In September 2020 she underwent skin testing and tested allergic to trees, grasses, weeds, molds, and animal dander, including cat, dog, dust mites, cockroach, feather mix, guinea pig, and sweet gum. Rosita and her mother have opted to start cluster allergy immunotherapy. She complaints of itchy/watery eyes, congestion, drainage, and post nasal drip. She is taking Ofelia, Pepcid, Singulair and Flonase Sensimist daily and uses Zaditor eye drops as needed. Tree nut allergy (comments) She continues avoiding peanuts and tree nuts. Denies any accidental exposures. Last ImmunoCAPS 11/05/2020: peanut 8.81 KU/L, Cashew 1.59 KU/L, Forsyth 0.79 KU/L, Hazelnut 12.7 KU/L, Macadamia Nut 0.17 KU/L, Pistachio 2.20 KU/L and Sharon <0.10 KU/L. She has a current Auvi Q and up to date food allergy action plan. eczema (comments) She complains of itchy, inflamed skin to the outer aspects of her hands. She has been moisturizing regularly with CeraVe. Vaccine Reaction (comments) On Cat zarate 11/06/20 she received the first dose of the Pfizer MRNA vaccine. After receiving the vaccine she left the facility and went to soccer practice. Pt reports about two hours after the receiving her vaccine she developed hives on the top portion of both of her arms. She went home and showered and her hives persisted on her arms; denies diffuse hives, wheezing, shortness of breath, difficulty swallowing or angioedema. Mom gave her a dose of benadryl and her hives resolved later that evening. Denies prior history of vaccine reaction. Vaccine Reaction allergy f/u Tree nut allergy eczema asthma (comments) Patient denies any coughing, wheezing, sneezing, or SOB. She is taking Singulair 10 mg PO daily at bedtime. She uses Albuterol prior to track and soccer as needed if her allergies are bothering me. Follow Up of Reaction, food Follow Up of Eczema Allergy testing Follow Up of Reactio n, food (comments) She continues avoiding peanuts and tree nuts. She has not gotten recent immunoCAPS. Patient's last immunoCAPS were drawn 11/11/2015: peanut 9.68 KU/L, Cashew 6.09 KU/L, Forsyth 1.43 KU/L, and Sharon <0.34 KU/L. Allergy testing (comments) This is a 15 y/o female who presents to the clinic for follow up and to perform environmental skin testing. Patient was last seen via telehealth on 10/08/2020. Symptoms worsening over the past few years, especially during spring. Patient has been experiencing itchy/watery eyes, nasal congestion, drainage, and PND. Patient currently takes Aller-Fex, Nasacort, and Singulair daily which somewhat helps. She would like to know what her triggers are and start on allergy vaccines. Follow Up of Asthma Follow Up of Asthma (comments) S he used her albuterol last week one time after exercise. 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 She has not had to use it more than twice per week outside of exercise. Patient denies any coughing, wheezing, sneezing, or SOB. She is taking Singulair 10 mg PO daily at bedtime. She has not had any recent hospitalizations. Follow Up of Eczema (comments) H alex and eczema are improving. She does still have some itching and redness to left hand. She has been using CeraVe lotion. Follow Up of Allergy symptoms Follow Up of Eczema Follow Up of Hives Follow Up of Reaction, food Follow Up of Eczema (comments) Ernestina castillo states that she has been having worsening eczema on her hands, especially on her left. this has been worsening over the past few weeks. Patient has been using Eucerin cream over areas which somewhat help. Patient states that she also uses cocoa butter lotion. She has not had any breakage in her skin from this. She has not used hydrocortisone in the past. 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 Patient states that she used her albuterol last week one time after exercise. She has not had to use it more than twice per week outside of exercise. Patient denies any coughing, wheezing, sneezing, or SOB. Patient has been taking Singulair 10 mg PO daily at bedtime. Patient does complain of intermittent wheezing very rarely. She has not had any recent hospitalizations. Follow Up of Reactio n, food (comments) Patient has been actively avoiding peanuts and tree nuts. She has not gotten recent immunoCAPS. Patient Last immunoCAPS were drawn 11/11/2015: peanut 9.68 KU/L, Cashew 6.09 KU/L, Forsyth 1.43 KU/L, and Sharon <0.34 KU/L. Follow Up of Allergy symptoms (comments) This is a 15 y/o female who is being seen for allergic rhinitis, eczema, hives, and asthma via telehealth. Patient was last seen 12/22/2017 with AWA. Patient has not been tested for environmental skin allergies in the past. Patient states that her symptoms have been getting worse over the past few years. Patient states that symptoms are worse during the spring. Patient has been experiencing itchy/watery eyes, nasal congestion, drainage, and PND. Patient currently takes Aller-Fex, Nasacort, and Singulair daily which somewhat helps. She also complains of hives that have broken out on Tuesday. She states that they are small, red, itchy bumps on her arms, legs, and back. Patient has been using Benadryl, oatmeal baths, and Eucerin cream which have somewhat helped. Follow Up of Asthma Follow Up of Hives (comments) Se e above. Functional Status Date Functional Assessmen t No Information Instructions Date Instruction Additional Infor mation Disease process allergic rhinitis, asthma, eczem a, food allergy Disease process Disease process Disease process Disease process Food Allergy Action Plan Disease process Assessments Type Assessment Date assessment Food allergy assessment Allergic rhinitis due to pollen, unspecified seasonality assessment Allergic rhinitis due to animal hair and dander assessment Allergic rhinitis due to dust mi te assessment Mild persistent asthma without c omplication assessment Flexural eczema Mental Status Date Cognitive Assessment Orientation - Gouldbusk ed to time, place, person, situation. Patient Care Teams Name Effective Dates (start - stop) Status Members No Information
[2025-04-11 15:40] VITALS: BP 153/75; PULSE 75; RESP 16; TEMP 36.8; O2SAT 100
[2025-04-11 15:47] VITALS: BP 143/72; PULSE 65; RESP 21; O2SAT 99
[2025-04-11] MEDS: FAMOTIDINE 20 MG/2 ML VIAL IV PUSH (15:48)
--- NOTE | 2025-04-11 16:17 | ED_ITS ---
HPI - Allergic Reaction General Chief complaint: Allergic Reaction Stated complaint: allergic reaction History of Present Illness HPI narrative: Pt has tree nut allergy and thinks she ate a cracker with cashews in it by accident. Pt felt like throat was tightening. Pt took benadryl and waited and then gave herself a dose of her epipen. Pt received the remainder of benadryl IV and solumedrol per EMS en route. EMS and patient both note improvement. Related Data Allergies Allergy/AdvReac Type Severity Reaction Status Date / Time peanut Allergy Severe Anaphylaxis Verified 04/11/25 16:08 Penicillins Allergy Severe Hives Verified 04/11/25 16:45 tree nut Allergy Severe Anaphylaxis Verified 04/11/25 16:08 Review of Systems Review of Systems: All systems reviewed & are unremarkable except as noted in HPI and below Exam Const: General: healthy appearing and no acute distress Nutritional Appearance: well nourished Orientation/consciousness: patient oriented x3 Limitations: no limitations HENMT: Head: normal to inspection Ears: external ears normal Face/Nose/Sinus: Normal external nose present Mouth: Yes Normal oral and palatal mucosa present Teeth and gingiva: dentition normal Throat: posterior oropharynx normal Eyes: Pupils: Equal, round and reactive pupils present EOM: EOMs intact raisa aterally Neck: Neck: normal visual inspection Chest: Chest palpation & inspection: normal inspection of the chest Resp: Effort & Inspection: normal respiratory effort Auscultation: clear to auscultation bilaterally Cardio: Rate: regular rate Rhythm: regular rhythm GI: GI Palp: Yes Soft to palpation and No Tenderness to palpation present (GI) Auscultation: normal bowel sounds Skin: General skin exam: normal color Rashes: no rashes Wounds: no wounds Neuro: General: patient oriented x3, moves all extremities, no focal motor deficits and CN's II-XI intact bilaterally Speech: normal speech Extrem: General: normal to inspection and no clubbing, cyanosis or edema Psych: Mental Status: mental status grossly normal Affect: normal affect Attitude: cooperative Course Vital Signs Vital signs: Vital Signs Temperature 98.2 F 04/11/25 15:40 Pulse Rate 75 04/11/25 15:40 Respiratory Rate 16 04/11/25 15:40 Blood Pressure 153/75 H 04/11/25 15:40 Pulse Oximetry 100 04/11/25 15:40 Oxygen Delivery Room Air 04/11/25 15:40 Temperature 98.2 F 04/11/25 15:40 Pulse Rate 75 04/11/25 17:02 Respiratory Rate 16 04/11/25 17:02 Blood Pressure 150/81 H 04/11/25 17:02 Pulse Oximetry 99 04/11/25 17:02 Oxygen Delivery Room Air 04/11/25 15:40 MDM - Allergic Reaction MDM Narrative Medical decision making narrative: Pt developed some throat tightening afer eating cashew. Pt better after treatment. Will give pepcid and observe. Pt has no repsiratory issues afer observatin but some epigastric burning. will give GI cocktail. Pt feels better after GI cocktail. will send home on prednisone and pepcid and refill of epipen. pt can take benadryl Discharge Plan Discharge Clinical Impression: Allergic reaction Patient Disposition: Home Condition: Improved Instructions: Antibiotic Form, Food Allergy (ED) Patient Language: Taiwanese Prescriptions: New epinephrine [EpiPen 2-Shin] 0.3 mg/0.3 mL auto-injector 0.3 mg IM Q5-15M PRN (Reason: anaphylaxis) Qty: 2 0RF Rx Instructions: do not exceed 3 doses per episode prednisone 50 mg tablet 50 mg PO DAILY Qty: 5 0RF famotidine [Pepcid] 20 mg tablet 20 mg PO DAILY Qty: 30 0RF Stand Alone Forms: Work/School Release IP
[2025-04-11 16:33] VITALS: BP 141/82; PULSE 81; RESP 13; O2SAT 100
[2025-04-11] MEDS: BELLADONNA ALK/PHENOB ELIX 10 ML, MAG HYDROX/ALUMINUM HYD/SIMETH 30 ML, LIDOCAINE 2% VI... PO (16:40)
[2025-04-11 17:02] VITALS: BP 150/81; PULSE 75; RESP 16; O2SAT 99
--- OUTSIDE RECORDS SUMMARY | 2025-04-11 17:19 | XMS_ITS | Clinical Summary ---
Author Organization [facility] Address [address] [place] [address] Care Team Providers Care Music Pastor Name Role Phone Prakash Chowdhury DO Primary Care Provider Allergies Active Allergy Reactions Criticality Noted Date Comments Peanut Hives High 03/07/2018 Penicillins Hives Medium 04/06/2016 Tree Nut Anaphylaxis High 03/07/2018 Medications albuterol HFA (PROVENTIL HFA,VENTOLIN HFA,PROAIR HFA) 90 mcg/actuation inhaler 0 Active cetirizine (ZyrTEC) 10 mg tablet 6 Active ketotifen (ZADITOR) 0.025 % ophthalmic solution 6 Active EPINEPHrine 0.3 mg/0.3 mL auto-injection syringe 1 Active metroNIDAZOLE (METROCREAM) 0.75 % cream 1 Active tretinoin (RETIN-A) 0.05 % cream APPLY TOPICALLY TO FACE EVERY NIGHT TOLERATED 1 Active montelukast (SINGULAIR) 10 mg tablet Take 1 tablet (10 mg total) by mouth nightly 90 tablet 3 4 Active Kurvelo, 28, 0.15-0.03 mg per tablet Take 1 tablet by mouth daily 28 tablet 1 4 Active rosuvastatin (CRESTOR) 10 mg tabletIndications :High cholesterol Take 1 tablet (10 mg total) by mouth daily 90 tablet 3 04/07/202 5 Active beclomethasone dipropionate (QVAR REDIHALER) 80 mcg/actuation inhaler Inhale 2 puffs 2 (two) times a day 5 Active cyclobenzaprine (FLEXERIL) 10 mg tablet Take 1 tablet (10 mg total) by mouth every 8 (eight) hours as needed for muscle spasms for up to 7 days 21 tablet 5 Active celecoxib (CeleBREX) 200 mg capsule Take 1 capsule (200 mg total) by mouth daily for 14 days 14 capsule 5 Active HYDROcodone-aceta minophen (NORCO) 5-325 mg per tabletIndications :Pain Take 1 tablet by mouth every 8 (eight) hours as needed for pain for up to 2 days 6 tablet 5 03/27/20 Active Problems Problem Noted Date Diagnosed Date RUQ abdominal pain 06/26/2024 Assessment & Plan (06/26/2024 3:19 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): Differential diagnosis discussed with the patient Will check CBC with diff today and comp metabolic profile Order right upper quadrant abdominal/gallbladder ultrasound If the above workup negative given her description of the pain may progress onto HIDA scan for further evaluation I ask the patient to engage in a bland diet until all testing has been completed and we have a disposition Follow up as needed if not improving Nausea and vomiting 06/26/2024 Peanut allergy 12/09/2023 Assessment & Plan (12/09/2023 3:52 PM CDT): Her EpiPen is up-to-date Tree nut allergy 12/09/2023 Annual physical exam 12/09/2023 Assessment & Plan (12/09/2023 3:51 PM CDT): Well check performed today All preventatives reviewed I defer fasting blood work to Cardiology Patient due to see Gynecology next month Hopeful to get old records soon including a copy of immunizations to see if there are any deficiency Adverse effect of other vacc kelvin and biological substances, initial encounter 07/26/2021 Allergic conjunctivitis, bilateral 07/26/2021 Allergic rhinitis due to [place] house dust emilee e 07/26/2021 Allergic rhinitis due to animal (cat) (dog) hair and dander 07/26/2021 Conjunctivitis 07/26/2021 Exercise induced bronchospasm 07/26/2021 Flexural eczema 07/26/2021 Hives 07/26/2021 Mild intermittent asthma without complication Assessment & Plan (12/09/2023 3:52 PM CDT): Managed by mediator Medications reviewed Allergic rhinitis, seasonal 12/26/2020 High cholesterol 11/14/2020 Assessment & Plan (12/09/2023 3:51 PM CDT): Managed by communication skills instructor On rosuvastatin 10 mg once daily Hip strain, right, initial encounter 03/07/2018 Resolved Problems Problem Noted Date Diagnosed Date Resolved Date Acute otitis media 07/26/2021 4 Encounters Date Type Department Care Team Description 03/27/2025 10:20 AM CDT Ancillary Procedure [facility] Imaging at [address] [phone] Injury of low back, initial encounter 03/27/2025 10:15 AM CDT Office Visit [facility] Sports Medicine and Primary Care at [address] [phone] Dru Carrasquillo DO Injury of low back, initial encounter (Primary Dx) 03/25/2025 Orders Only [facility] Medicine and Primary Care at [address] [phone] Dru Carrasquillo DO from Last 3 Months Immunizations Immunization Administration Dates Next Due DTaP 03/13/2008, 4,2003,09/30 HPV9 03/14/2017,02/27/2015 Hep A, Pediatric 03/14/2017,02/27/2015 Hep B, Adolescent or Pediatric 03/10/2009,2003,2003 Hib (PRP-T) 08/11/2004, 4,2003,10/18 IPV 03/13/2008,2003,2003 Influenza, Quadrivalent, Opal l Culture-based MDCK, Preservative Free, Antibiotic Free, Intramuscular 07/17/2019 Influenza, Quadrivalent, Spl it, Preservative Free, Intramuscular 04/17/2021,05/02/2020,03/14/2017 Influenza, Split 07/01/2004,05/27/2004 Influenza, Unspecified 05/01/2024,05/14/2020 MMR 03/10/2009,03/13/2008 Meningococcal B, Recombinant (Trumenba) 12/14/2022 Meningococcal MCV4, Unspecified 02/27/2015 Meningococcal MCV4P (Menactra) 10/02/2019,2014 Pfizer SARS-CoV-2 Monovalent Vaccination (12+ Yrs) MEDINA-READY TO USE 08/29/2021 Pneumococcal Conjugate 7-Valent 08/11/19 05,02/12/2004,2003,09/30 Tdap 12/14/2022,02/27/2015 Varicella 03/10/2009,03/13/2008 Medical History Medical History Date Comments Hypertension Hypercholesteremia Tree nut allergy Peanut allergy Asthma Family History Medical History Relation Name Comments Sickle cell trait Brother Asthma Father Hyperlipidemia Father No medication s Hyperlipidemia Maternal Grandmother Hyperlipidemia Mother No medication s Hypertension Mother's Brother 1 Hypertension Mother's Brother 2 Relation Name Status Comments Brother Father Maternal Grandmother Mother Mother's Brother 1 Mother's Brother 2 Social History Tobacco Use Types Packs/Day Years Used Date Smoking Tobacco: Never Smokeless Tobacco: Never Tobacco Cessation:Counseling Given: Not Answered AUDIT-C Answer Date Recorded Q1: How often do you have a drink containing alcohol? Never 12/09/2023 Q2: How many drinks containi ng alcohol do you have on a typical day when you are drinking? Patient does not drink Q3: How often do you have si x or more drinks on one occasion? 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 Gender Identity Female 01/10/2023 9:08 AM CDT Sexual Orientation Straight 01/10/2023 9: 08 AM CDT Obstetrics History Last Filed Vital Signs Vital Sign Reading Time Taken Comments Blood Pressure 143/83 03/27/2025 10:34 AM CDT Pulse 60 03/27/2025 10:34 AM CDT Temperature 36.6 C (97.8 F) 10/18/2024 7:28 PM CDT Respiratory Rate 16 10/18/2024 7:28 PM CDT Oxygen Saturation 96% 11/05/2024 1:50 PM CDT Inhaled Oxygen Concentration - - Weight 72.7 kg (160 lb 4.8 oz) 03/27/2025 10:34 AM CDT Height 167.6 cm (5' 6) 03/27/2025 10:34 AM CDT Body Mass Index 25.87 03/27/2025 10:34 AM CDT Plan of Treatment Health Maintenance Due Date Last Done Comments Cervical Cancer Screening 2003 Hepatitis C Screening 2003 Pneumococcal vaccine <65 (1 of 1 - PPSV23, PCV20, or PCV21) 2009 08/11/2004, 02/12/2004, 2003, Additional history exists Meningococcal B Vaccine (2 o f 2 - Trumenba SCDM 2-dose series) 06/16/2023 12/14/2022 Depression Screening 12/08/2024 12/09/2023 Regular Well Visit/Exam 18-64 12/08/2024 12/09/2023 Covid-19 Vaccine (4 - 2024-2 6 season) 2025 08/29/2021, 11/26/2020, 11/05/2020 Influenza Vaccine (#1) 2025 , 04/17/2021, 05/14/2020, Additional history exists DTaP/Tdap/Td Vaccine (7 - Td or Tdap) 12/14/2032 12/14/2022, 02/27/2015, 03/13/2008, Additional history exists Hepatitis B Screening Completed 03/10/2009 , 02/06/2004, 2003 Varicella Vaccines Completed 03/10/2009, 03/13/2008 HPV Vaccines Completed 03/14/2017, 02/27/2015 Meningococcal Vaccine Completed 10/02/2019 , 02/27/2015, 02/27/2015 Procedures Procedure Name Priority Date/Time Associated Diagnosis Comments XR SPINE LUMBAR COMPLETE 4 OR MORE VIEWS Routine 03/27/2025 10:28 AM CDT Injury of low back, initial encounter from Last 3 Months Results * XR Spine Lumbar 4 or More Views (03/27/2025 10:28 AM CDT) Anatomical Region Laterality Modality Spine N/A Digital Radiogra phy 03/27/2025 2:00 PM CDT Narrative 03/27/2025 2:02 PM CDT EXAM DESCRIPTION: XR SPINE LUMBAR 4 OR MORE VIEWS REASON FOR STUDY: Pt. Hurt back on Tuesday. Pain radiates down into right hip. 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 COMPARISON: No prior FINDINGS: There are 5 tzd-[id number] lumbar vertebral bodies. There is preservation of vertebral body height with no acute fracture. Disc spaces are preserved. No spondylolisthesis. No significant facet arthropathy. Pedicles appear normal throughout. Well corticated ossification is seen along the lateral aspect of the right L1 transverse process. Well corticated margins favor this to reflect sequela of old injury. Correlate with point tenderness. Sacroiliac joints are intact. Soft tissues are unremarkable. IMPRESSION: 1. No acute fracture. 2. Well corticated ossification is seen along the lateral aspect of the right L1 transverse process. Well corticated margins favor sequela of old injury. Correlate with point tenderness. THIS IS AN ELECTRONICALLY VERIFIED FINAL REPORT 03/27/2025 2:02 PM - Electronically signed by Dru MOON T: Report ID: [id number] Reading Location: [id number] Procedure Note Dru Gibson MD - 03/27/2025 EXAM DESCRIPTION: XR SPINE LUMBAR 4 OR MORE VIEWS REASON FOR STUDY: Pt. Hurt back on Tuesday. Pain radiates down into righthip. 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 COMPARISON: No prior FINDINGS: There are 5 hil-scp-pnsqllm lumbar vertebral bodies. There is preservation of vertebral body height with no acute fracture. Disc spacesare preserved. No spondylolisthesis. No significant facet arthropathy.Pedicles appear normal throughout. Well corticated ossification is seen along the lateral aspect of the rightL1 transverse process. Well corticated margins favor this to reflect sequelaof old injury. Correlate with point tenderness. Sacroiliac joints are intact. Soft tissues are unremarkable. IMPRESSION: 1. No acute fracture. 2. Well corticated ossification is seen along the lateral aspect of the right L1 transverse process. Well corticated margins favor sequela of old injury. Correlate with point tenderness. THIS IS AN ELECTRONICALLY VERIFIED FINAL REPORT 03/27/2025 2:02 PM - Electronically signed by Dru Gibson M.D. MJ T: Report ID: [id number] Reading Location: [place] [id number] Dru Carrasquillo DO IMG XR PROCEDURES Bernadette l Result from Last 3 Months Insurance [id number] [id number] MONICA CASTRO CIGMOISES IBEW CIGNA BMI BENEFITS CIGNA IBEW [facility] OPEN ACCESS Care Teams Music Pastor Relationship Specialty Start Date End Date Prakash Chowdhury DO [address] [place] [address] PCP - General Family Medicine 10/18/23
--- OUTSIDE RECORDS SUMMARY | 2025-04-11 17:19 | XMS_ITS | Encounter Summary ---
Author Organization [facility] Address [address] [place] [address] Care Team Providers Care Fur Mixer Operator Name Role Phone Prakash Chowdhury DO Primary Care Provider [phone] Encounter Details Date Type Department Care Team (Late st Contact Info) Description 08/08/2024 Orders Only [facility] [facility] [place] [address] [place] [id number] Scanning, Provider Social History Tobacco Use Types Packs/Day Years Used Date Smoking Tobacco: Never Smokeless Tobacco: Never AUDIT-C Answer Date Recorded Q1: How often [...] on file 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 Gender Identity Female 01/10/2023 9:08 AM CDT Sexual Orientation Straight 01/10/2023 9: 08 AM CDT documented as of this encounter Plan of Treatment Not on file documented as of this encounter Procedures Procedure Name Priority Date/Time Associated Diagnosis Comments SCAN - LABS 08/08/2024 documented in this encounter Results * SCAN - LABS (08/08/2024) us Provider Scanning Final Result documented in this encounter Visit Diagnoses Not on filedocumented in this encounter Care Teams Fur Mixer Operator Relationship Specialty Start Date End Date Prakash Chowdhury DO [address] [place], [place] [id number] PCP - General Family Medicine 10/18/23 documented as of this encounter
== END 2025-04-11 17:42 | disposition home or self-care (01) ==
LOC: ANHED 17:17
PROVIDERS: Emergency Provider Emergency Medicine
DX: T78.1XXA Other adverse food reactions, not elsewhere classified, initial encounter (principal); J02.9 Acute pharyngitis, unspecified
CPT/HCPCS: 96374; 99284; A9270